=== PATIENT | male | born 2000 | race Caucasian/White ===

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

== ENCOUNTER → 2020-03-10 | Outpatient (CLI) | payer SELFPAY ==
[~2020-03-10] MED LIST changes: +TAMIFLU 75MG CA75 MG PO
== END | disposition home or self-care (01) ==
LOC: COVID19 13:36
PROVIDERS: ATTEND Internal Medicine
DX: U07.1 COVID-19 (principal)